=== PATIENT | female | born 1995 | race Caucasian/White ===

== ENCOUNTER 2018-08-20 13:56 | Emergency (ER) | payer SELFPAY ==
[~2018-08-20] VITALS: Ht 167.6 cm; Wt 73.5 kg
--- NOTE | 2018-08-20 14:30 | NUR ---
patient presented to the ER overdose for heroin. on room air, breathing evenly and unlabored. connected to the monitor and pulse ox. kept comfortable, will continue to monitor accordingly.
[2018-08-20 14:38] LABS: BASOPHILS # (AUTO) 0.1 /CMM (0.0-0.2); BASOPHILS % (AUTO) 0.7 % (0.0-2.0); EOSINOPHILS % (AUTO) 2.1 % (0.0-6.0); HEMATOCRIT 38 % (33-45); HEMOGLOBIN 12.9 g/dL (11.5-14.8); LYMPHOCYTES # (AUTO) 1.4 /CMM (0.8-4.8); LYMPHOCYTES % (AUTO) 13.3 % (20.0-44.0); MEAN CORPUSCULAR HGB CONC 34 g/dl (31.0-36.0); MEAN CORPUSCULAR VOLUME 93 fL (82-100); MONOCYTES # (AUTO) 0.5 /CMM (0.1-1.30); MONOCYTES % (AUTO) 4.8 % (2.0-12.0); NEUTROPHILS # (AUTO) 8.2 /CMM (1.8-8.9); NEUTROPHILS % (AUTO) 79.1 % (43.0-81.0); PLATELET COUNT (AUTO) 258 /CMM (150-450); RED BLOOD CELL COUNT(AUTO) 4.06 MIL/uL (4.0-5.2); WHITE BLOOD COUNT (AUTO) 10.3 K/uL (4.3-11.0)
[2018-08-20 14:49] LABS: CALCIUM, SERUM 8.1 mg/dL (8.5-10.1); CARBON DIOXIDE 24 mmol/L (21-32); CHLORIDE 106 mmol/L (98-107); CREATININE 0.9 mg/dL (0.6-1.3); GLUCOSE 195 mg/dL (74-106); POTASSIUM 3.7 mmol/L (3.5-5.1); SODIUM SERUM 142 mmol/L (136-145); UREA NITROGEN, BLOOD 19 mg/dL (7-18)
[2018-08-20] MEDS ORDERED: ONDANSETRON HCL/PF 4 MG/2 ML VIAL ONE (14:49)
[2018-08-20 14:55] LABS: ALANINE AMINOTRANSFERASE 26 U/L (12-78); ALBUMIN 3.9 g/dL (3.4-5.0); ALCOHOL, BLOOD < 3 mg/dL (0-0); ALKALINE PHOSPHATASE 67 U/L (46-116); ASPARTATE AMINOTRANSFERASE 33 U/L (15-37); BILIRUBIN,DIRECT 0.2 mg/dL (0.0-0.2); BILIRUBIN,TOTAL 0.7 mg/dL (0.2-1.0); SALICYLATE < 0.2 mg/dL (2.8-20.0); TOTAL PROTEIN, SERUM 6.7 g/dL (6.4-8.2)
[2018-08-20 14:56] LABS: ACETAMINOPHEN 0 ug/ml (10-30)
[2018-08-20] MEDS: ONDANSETRON HCL/PF 4 MG/2 ML VIAL IVP ONE (15:00)
[2018-08-20] MEDS: IV NS 0.9% 1,000 ML BAG IV ONE ×2 (15:00→19:00)
[2018-08-20] MEDS ORDERED: NALOXONE HCL 0.4 MG/ML AMPUL ONE (18:00)
[2018-08-20] MEDS: NALOXONE HCL 0.4 MG/ML AMPUL IV ONE (18:06)
--- NOTE | 2018-08-20 19:00 | NUR ---
PT AXO4. NAD NOTED. WILL CONTINUE TO MONITOR.
--- NOTE | 2018-08-20 20:01 | NUR ---
CALLED FOR TAP CARD
--- NOTE | 2018-08-20 20:25 | NUR ---
Patient discharged to home in stable condition. Written and verbal after care instructions given. Patient verbalizes understanding of instruction. PT AMBULATORY WITH STEADY GAIT. IV removed. Catheter intact and site benign. Pressure and 4x4 applied to site. No bleeding noted.
[2018-08-20 20:27] VITALS: BP 124/82
== END 2018-08-20 20:29 | disposition home or self-care (01) ==
LOC: ER 13:59
DX: T40.1X1A Poisoning by heroin, accidental (unintentional), initial encounter (principal); E86.0 Dehydration; F32.9 Major depressive disorder, single episode, unspecified; F41.9 Anxiety disorder, unspecified; F17.200 Nicotine dependence, unspecified, uncomplicated; Z60.2 Problems related to living alone; Z90.89 Acquired absence of other organs; Z98.890 Other specified postprocedural states; Y92.89 Other specified places as the place of occurrence of the external cause
CPT/HCPCS: 36415; 70450; 72125; 80048; 80076; 80307; 80329; 85025; 96361; 96374; 96375; 99284; G0480; J2310; J2405; J7030 ×2

== ENCOUNTER 2019-12-26 01:55 | Emergency (ER) | payer OTHER ==
[~2019-12-26] VITALS: Ht 167.6 cm; Wt 61.2 kg
--- NOTE | 2019-12-26 02:23 | NUR ---
PT CAME TO E.R. WALKING, C/O PELVIC PAIN. ALSO COMPLAINS PAIN IN URINATION, LOWER BACK PAIN, PT STATED TO HAVE A PAIN SCALE OF 6-7, PAIN STARTED A WEEK AGO, SHE STATED IT MORE PAINFUL LAST WEEK COMPARED TODAY. A/0 X 4, AMBULATORY, UNLABORED BREATHING, BREATHING AT ROOM AIR.
[2019-12-26 02:55] LABS: APPEARANCE,URINE CLEAR (CLEAR); BILIRUBIN,URINE NEGATIVE (NEGATIVE); BLOOD, URINE NEGATIVE Ery/uL (NEGATIVE); COLOR,URINE YELLOW (YELLOW); KETONES,URINE NEGATIVE (NEGATIVE); LEUKOCYTE ESTERASE ,URINE TRACE (NEGATIVE); NITRITE, URINE POSITIVE (NEGATIVE); PROTEIN,URINE NEGATIVE (NEGATIVE); UGLUCOSE NEGATIVE (NEGATIVE)
[2019-12-26 03:17] LABS: RBC,URINE 0-2 /HPF (0-2)
[2019-12-26 03:18] LABS: BACTERIA,URINE Many /HPF (None Seen); SQUAMOUS EPITHELIAL CELL,UR Few /HPF (None Seen); WBC,URINE 21-50 /HPF (0-3)
[2019-12-26] MEDS ORDERED: NITROFURANTOIN/NITROFURAN MAC 100 MG CAPSULE ONE (03:55)
--- NOTE | 2019-12-26 03:56 | NUR ---
PATIENT IS AMBULATORY WITH A STEADY GAIT TO THE RESTROOM.
[2019-12-26 04:03] VITALS: BP 129/82
[2019-12-26] MEDS ORDERED: NITROFURANTOIN MACROCRYSTAL 50 MG CAPSULE PO SCH (06:00)
== END 2019-12-26 04:00 | disposition home or self-care (01) ==
LOC: ER 01:58
DX: N39.0 Urinary tract infection, site not specified (principal); F17.200 Nicotine dependence, unspecified, uncomplicated; Z60.2 Problems related to living alone
CPT/HCPCS: 81000-TC; 84703-TC; 87086-TC; 87186-TC

== ENCOUNTER 2020-09-03 23:33 | Emergency (ER) | payer OTHER ==
[~2020-09-03] VITALS: Ht 167.6 cm; Wt 59.0 kg
[2020-09-03 23:48] VITALS: BP 114/69
--- NOTE | 2020-09-03 23:52 | NUR ---
Pt bibself c/o left ear pain x4days. Pt aaox4 breathing evenly and unlabored. Pt skin warm,dry, and intact. pt attached to monitor and pox. [place] given and call light within reach
[2020-09-03] MEDS ORDERED: AMOX-430 PO (23:55)
== END 2020-09-04 00:06 | disposition home or self-care (01) ==
LOC: ER 23:36
DX: H66.92 Otitis media, unspecified, left ear (principal); Z60.2 Problems related to living alone

== ENCOUNTER 2021-05-24 00:54 | Emergency (ER) | payer OTHER ==
[~2021-05-24] VITALS: Ht 170.2 cm; Wt 65.8 kg
[~2021-05-24 00:54] MED LIST: AMOX-430 PO
--- NOTE | 2021-05-24 01:05 | NUR ---
RHODA. TO ER BED 1. ALTERED MENTAL STATUS. RESPONDS TO PAIN STIMULI. PER FRIEND PT, TOOK FENTANYL. PT WAS NOTED WITH SLOW SHALLOW BREATHING. PER FRIEND, PT RECEIVED CPR. DENIES ANY CP. PT AWOKEN AFTER GIVING IM NARCAN. PT ON MONITOR. MD WAS AT THE BEDSIDE.
[2021-05-24] MEDS ORDERED: NALOXONE PREFILLED SYRINGE 2 MG/2 ML SYRINGE ONE (01:08)
[2021-05-24] MEDS ORDERED: NALOXONE HCL 0.4 MG/ML AMPUL IM ONE (01:30)
[2021-05-24 01:56] LABS: BASOPHILS % (AUTO) 0.5 % (0.0-2.0); EOSINOPHILS % (AUTO) 3.4 % (0.0-6.0); HEMATOCRIT 37 % (33-45); HEMOGLOBIN 12.7 g/dL (11.5-14.8); LYMPHOCYTES # (AUTO) 2.6 K/uL (0.8-4.8); LYMPHOCYTES % (AUTO) 40.1 % (20.0-44.0); MEAN CORPUSCULAR HGB CONC 34 g/dl (31.0-36.0); MEAN CORPUSCULAR VOLUME 88 fL (82-100); MONOCYTES # (AUTO) 0.4 K/uL (0.1-1.30); MONOCYTES % (AUTO) 5.9 % (2.0-12.0); NEUTROPHILS # (AUTO) 3.2 K/uL (1.8-8.9); NEUTROPHILS % (AUTO) 50.1 % (43.0-81.0); PLATELET COUNT (AUTO) 280 K/uL (150-450); RED BLOOD CELL COUNT(AUTO) 4.22 MIL/uL (4.0-5.2); WHITE BLOOD COUNT (AUTO) 6.5 K/uL (4.3-11.0)
[2021-05-24 02:35] LABS: CALCIUM, SERUM 8.4 mg/dL (8.5-10.1); CARBON DIOXIDE 28 mmol/L (21-32); CHLORIDE 102 mmol/L (98-107); CREATININE 0.8 mg/dL (0.6-1.3); GLUCOSE 125 mg/dL (74-106); POTASSIUM 3.2 mmol/L (3.5-5.1); SODIUM SERUM 138 mmol/L (136-145); UREA NITROGEN, BLOOD 13 mg/dL (7-18)
[2021-05-24 02:41] LABS: ALANINE AMINOTRANSFERASE 38 U/L (12-78); ALBUMIN 3.8 g/dL (3.4-5.0); ALCOHOL, BLOOD < 3 mg/dL (0-0); ALKALINE PHOSPHATASE 73 U/L (46-116); ASPARTATE AMINOTRANSFERASE 41 U/L (15-37); BILIRUBIN,DIRECT 0.1 mg/dL (0.0-0.2); BILIRUBIN,TOTAL 0.3 mg/dL (0.2-1.0); TOTAL PROTEIN, SERUM 6.9 g/dL (6.4-8.2)
[2021-05-24 02:42] LABS: ACETAMINOPHEN 0 ug/ml (10-30)
[2021-05-24] MEDS ORDERED: NALO4SPR NS (04:20)
[2021-05-24] MEDS ORDERED: POTASSIUM CHLORIDE 20 MEQ TAB.PRT.SR PO ONE ×2 (04:30→07:44)
--- NOTE | 2021-05-24 04:31 | NUR ---
pt cool to touch, c/o cold. provided with warm blankets, needs attended. vss on monitor
--- NOTE | 2021-05-24 05:32 | NUR ---
unable to administer KDur PO due to pt being lethargic and drowsy. pt is responsive, but unable to follow commands. medication not given at this time, due to risk for aspiration.
--- NOTE | 2021-05-24 07:06 | NUR ---
pt still lethargic, unable to complete nursing swallow screen at this time
--- NOTE | 2021-05-24 07:37 | NUR ---
THE PATIENT IS RECEIVED IN ER BED #1. THE PATIENT IS RESPONSIVE TO TACTILE STIMULI. RESPIRATION REGULAR AND UNLABORED. ATTACHED TO THE MONITOR. WILL CONTINUE TO MONITOR THE PATIENT.
--- NOTE | 2021-05-24 08:01 | NUR ---
PT IS AWAKE IN BED. AAOX4, SPEAKS IN FULL SENTENCES, RESPONDS TO COMMANDS. VS STABLE
--- NOTE | 2021-05-24 08:06 | NUR ---
PT'S HOME ADDRESS [address] [place], [address].
--- NOTE | 2021-05-24 08:32 | NUR ---
THE PATIENT IS ALERT TO VERBAL STIMULI RESPIRATION REGULAR AND UNLABORED. WILL CONTINUE TO MONITOR THE PATIENT.
--- NOTE | 2021-05-24 08:35 | NUR ---
PT REFUSED TO GIVE URINE
--- NOTE | 2021-05-24 08:40 | NUR ---
metal engineering process worker was called to evaluate this 25-year-old female who overdosed on Fentanyl. Patient was given Naxolone HCL via IV by Dr. Zackary Luna. This social professionals met with patient and provided her with referrals to : [facility]: [address] [place] [address] Intake hours: 5:45am9:00am, walk-ins Saturday, Saturday, [facility]: [address] [place] [address] Intake hours: 5:45am12:30pm, Saturday and [facility]: [address] [place] [id number] Intake hours: 8:00am2:00pm, Saturday through Saturday Patient accepted referral to MAT programs. metal engineering process worker provided support with motivational interviewing, education regarding opioid dependence, brief intervention and resources to treatment facilities. The pt. is alert& oriented x 4 and makes avoidant eye contact. The pt. remained calm & cooperative. Pt.s speech is WNL. Pt. is guarded & provided limited information. Patients mood is WNL. Pt. denies SI/HI and denies hallucinations. Patient appears to be at the pre-contemplation phase of change with substance dependence. Patient states that she rarely uses Fentanyl and uses Heroin daily. Per pt. she does not want to receive treatment at the moment but will take resources and use them if she decides to. Pt. stated he will return to home ([address] [place], [address]. SW provided pt. with TAP card Patient refused to provide further details about previous Rehab/ Detox Treatment she has received for substance use. SW explored pt.s mental health Hx. Pt. stated he has been diagnosed with Depression in the past and stated she is not on any medication. Patient states her support system includes her mother, Hanny Rico [phone]. SW also provided the following addiction resources and she accepted them: ADDICTION RESOURCES For Drugs and Alcohol [facility]stance Abuse [facility]pl[facility] Outpatient treatment, residential treatment, recovery support for youth and adults [facility] www.Moneysoftounseling.Greekdrop [facility] Teen programs for drug/alcohol education and support Alpesh Neff [place]. Program for adults, sliding scale provides support and education Barbie Udorse www.Bakers ShoesFitOrbitation.org [place]; Outpatient/residential treatment programs; transition to sober living [facility] www.cri-help.org [place]; Outpatient and residential treatment programs; transition to sober living [facility] [address]; Outpatient education and supportive programs for teens and adults [facility] www.[facility].org [place]; Residential treatment and work program for females only [facility] www.[facility] centerCur[facility]ider[facility].Sherpaa [place]: Outpatient/residential treatment program for teens and young adults [facility] www.[facility].org [place] [facility], inpatient, outpatient for adults and youth [facility], [facility]. [place]; Outpatient programs and referrals to community residential programs. Alcoholics Anonymous -SFV information and meeting and schedules www.aa-intergroup.org Ve-Impk-Njldrta https://al-anon.org/ [place] support groups for family of alcoholics. Marijuana Anonymous www.madistrict6.org -SFV listing of meetings Narcotics Anonymous www.na.org SOBER LIVING RESOURCES [facility] www.soberhousing.net A non-profit agency that provides resources to recovery and sober living homes throughout [facility] Sober Living Homes: A Work in ProgressDeepali Wyattt[facility] Herlinda Neff Recovery Advoc[facility], [facility] So[facility] Living Homes: [facility] [phone] [place], [place] [facility] Sober Living Homes: [facility]--Outpatient [facility] [address] [facility] [place] [address] (Specializes in in-depth psychotherapy for emotional distress: anxiety, depression, interpersonal conflicts, life transitions, childhood abuse) [facility] [address] [place] [address] (Assist with solving problem marital difficulties, separation & divorce, aging parents, & grief, chronic & terminal illness) [facility] [address] [place] [address] (Deal with loss & grief, anxiety, marital difficulties) Homebound/Mental Health Services [address] [facility], [address] [place] [address] (Provide in-home mental services to people who are incapable of leaving their homes) [facility] for Needs of the Elderly Senior Service/Resource Center [address] [place] [address] [facility] [address] [place] [address] Mental Health Services Julianna Alberto [place] [address] [place] [address] Services: Outpatient therapy for children, teens, young adults, adults, older adults, and families; Psychiatric services, medication support Psychiatric Outpatient Services [facility] Partial Hospitalization and Intensive Outpatient Program (Managed Care and [place] Only)[address] [facility]. [facility] [phone] [facility] Partial Hospitalization and Outpatient [id number] [facility]. [address] [place], [place] [phone] [facility] Partial Hospitalization and Outpatient [id number] [facility] [place], [place] [phone] SONNY GONZALEZ [facility] [id number] [facility] Hospital[facility], [place] [phone] [facility] [address] Partial Hospitalization and Outpatient [id number] Joan Fung, [phone] Crisis and Hotline Telephone Numbers 24-Hour service unless stated [place] Crisis Hotlines: [employer] [facility] Mental Health/Crisis Line........[phone] Suicide Prevention Center (24 Hours).......[phone] Suicide Prevention Crisis Center.......[phone] (24 Hours) Assaults Against Women Hotline.........228.841.2372 (24 Hours -- [facility]) Women and Children Crisis Intermediate...........[phone] (24 Hours) Child Abuse Hotline............656.854.3874 [facility] Childrens Services [facility] (24 Hours)..........[phone] Alcoholics Anonymous (24 Hours)..........[phone] Cocaine Anonymous (24 Hours)............917.771.1980 Narcotics Anonymous (24 Hours)..........[phone] [address] [facility] [address], [place], [place] [address]
--- NOTE | 2021-05-24 08:40 | NUR ---
SUDHIR GARZA AT BEDSIDE
--- NOTE | 2021-05-24 08:43 | NUR ---
SW PROVIDED TAP CARD
--- NOTE | 2021-05-24 08:56 | NUR ---
PATIENT ABLE TO WALK IN STEADY GAIT
--- NOTE | 2021-05-24 09:04 | NUR ---
IV removed. Catheter intact and site benign. Pressure and 4x4 applied to site. No bleeding noted.Patient discharged to home in stable condition. Written and verbal after care instructions given. Patient verbalizes understanding of instruction.
[2021-05-24 09:07] VITALS: BP 119/76
--- NOTE | 2021-05-24 09:10 | NUR ---
AAOX4, PT WALKS WITH STEADY GAIT
--- NOTE | 2021-05-24 09:10 | NUR ---
Patient discharged to home in stable condition. Written and verbal after care instructions given. Patient verbalizes understanding of instruction.
== END 2021-05-24 09:07 | disposition home or self-care (01) ==
LOC: ER 00:59
DX: T40.411A Poisoning by fentanyl or fentanyl analogs, accidental (unintentional), initial encounter (principal); E87.6 Hypokalemia; F17.200 Nicotine dependence, unspecified, uncomplicated; Z60.2 Problems related to living alone; Y92.89 Other specified places as the place of occurrence of the external cause
CPT/HCPCS: 36415; 71045; 80048; 80076; 80143; 80320; 84484; 85025; 93005; 96372; 99291; J2310; G0480